=== PATIENT | male | born 1930 | race Caucasian/White ===

== ENCOUNTER 2016-09-01 07:35 | Day surgery (SDC) | payer OTHER ==
[~2016-09-01 07:35] MED LIST: ASPI1TAB69 PO; ATOR20TA15 PO; CYAN1000P SQ; GABA600T PO; ISOS30TA3 PO; KOMB2.5T PO; LISI40TA PO; LORA1TAB12 PO; METO25TA3 PO; PLAV75TA29 PO; VENTAER INH; VITA200012 PO
== END 2016-09-01 08:10 | disposition home or self-care (01) ==
LOC: HRAD 07:35 → HRIP 07:39 → HRAD 08:10
PROVIDERS: ATTEND Internal Medicine
DX: R91.8 Other nonspecific abnormal finding of lung field (principal)

== ENCOUNTER 2016-09-06 09:46 | Day surgery (SDC) | payer OTHER ==
[~2016-09-06] VITALS: Ht 162.6 cm; Wt 54.5 kg
[2016-09-06 10:03] VITALS: BP 173/83; PULSE 87; RESP 18; TEMP 97.4; O2SAT 98
[2016-09-06] MEDS ORDERED: ASPI81CH37 CHEW (10:12)
[2016-09-06] MEDS ORDERED: SODIUM CHLOR 0.9% 1000 ML IV SCH (10:15)
[2016-09-06 10:56] LABS: AUTOMATED NEUTROPHIL # 6.1 TH/MM3 (1.8-7.7); BASOPHIL % 0.6 % (0.0-2.0); EOSINOPHIL # 0.1 TH/MM3 (0-0.4); EOSINOPHIL % 1.7 % (0.0-4.0); HEMATOCRIT 35.2 % (39.0-51.0); HEMO FLAGS DIFF FINAL; LYMPH % 11.1 % (9.0-44.0); LYMPHOCYTE # 0.9 TH/MM3 (1.0-4.8); MEAN CELL VOLUME 78.9 FL (80.0-100.0); MEAN CORPUSCULAR HEMOGLOBIN 25.9 PG (27.0-34.0); MEAN CORPUSCULAR HGB CONC 32.8 % (32.0-36.0); MONO % 7.6 % (0.0-8.0); PLATELET COUNT 234 TH/MM3 (150-450); RED BLOOD COUNT 4.46 MIL/MM3 (4.50-5.90); RED CELL DISTRIBUTION WIDTH 14.2 % (11.6-17.2); WHITE BLOOD COUNT 7.7 TH/MM3 (4.0-11.0)
[2016-09-06 11:01] LABS: APTT (PATIENT) 43.4 SEC (24.3-30.1); PROTHROMBIN TIME - PATIENT 11.3 SEC (9.8-11.6)
[2016-09-06] MEDS ORDERED: LIDOCAINE 1%/EPINEPHrine 1:100,000 SOLN 20 ML VIAL ONE (11:35)
[2016-09-06] MEDS ORDERED: fentaNYL CITRATE 250 MCG/5 ML AMP ONE (11:54)
[2016-09-06] MEDS ORDERED: MIDAZOLAM HCL 2 MG/2 ML VIAL ONE (11:54)
--- NOTE | 2016-09-06 12:18 | PD.RAD ---
Post CT Procedure Prog Note Pre Procedure Diagnosis: (1) Mass of chest wall, left Post Procedure Diagnosis: (1) Mass of chest wall, left Procedure Date: Sep 06, 2016 Supervising Radiologist: Landon Al Anesthesia: Local, Conscious Sedation Plan of Activity Patient to Unit: [facility] Patient Condition: Good Additional Comments: CT guide biopsy of the left chest wall mass completed. Pt tolerated the procedure well. Full dictated report to follow See PACS Report for procedural detail/treatment Landon Al MD Sep 06, 2016 12:18
[2016-09-06 12:30] VITALS: BP 139/59; PULSE 80; RESP 16; TEMP 97.9; O2SAT 98
[2016-09-06 12:45] VITALS: BP 131/68; PULSE 83; RESP 18; O2SAT 97
--- NOTE | 2016-09-06 12:58 | RADRPT ---
EXAM DATE/TIME: 09/06/2016 11:58 [facility] COMPARISON: CT SIMULATION, June 17, 2014, 17:03. INDICATIONS : Left 2nd rib pain. SEDATION TIME: 30 minutes BIOPSY SITE: Left MEDICATION(S): 1.) 1 mg midazolam (Versed) IV 2.) 50 mcg fentanyl (Sublimaze) IV DEVICE(S): 1.) 20 gauge Temno core biopsy needle MEDICAL HISTORY : Diabetes mellitus type 2. Squamous cell carcinoma SURGICAL HISTORY : None. ENCOUNTER: Initial ACUITY: 1 day PAIN SCORE: 0/10 LOCATION: Left A total of two core specimen(s) were obtained and sent to the laboratory for pathologic evaluation. PROCEDURE: 1. CT guided bone deep biopsy. 2. Conscious sedation with continuous EKG and oximetry monitoring. 3. EKG and oximetry remained stable throughout the procedure. Prior to the procedure informed consent was obtained. Any appropriate prior imaging studies were rev iewed. Using automated exposure control and adjustment of the mA and/or kV according to patient size, radiat ion dose was kept as low as reasonably achievable to obtain optimal diagnostic quality images. DICOM format image data is available electronically for review and comparison. The site was prepped in a sterile fashion. Full sterile technique was used, including cap, mask, vivian rile gloves and gown and a large sterile sheet. Hand hygiene and 2% chlorhexidine and/or betadine/al cohol prep was utilized per protocol for cutaneous antisepsis. The skin and subcutaneous tissues wer e infiltrated with local anesthetic solution. With CT guidance the previously identified target was localized. Biopsy was performed using the presc ribed needle as above. Adequate hemostasis was obtained with compression at the puncture site. Follow-up CT scan reveals no hemorrhage. The patient tolerated the procedure well and there were no complications. The patient was returned to the Radiology Outpatient Unit in stable condition. CONCLUSION: Uncomplicated CT guided biopsy. Landon Al MD on September 06, 2016 at 12:57 Board Certified Radiologist. This report was verified electronically.
[2016-09-06 13:15] VITALS: BP 129/65; PULSE 84; RESP 20; O2SAT 97
[2016-09-06 13:45] VITALS: BP_SYST 130; BP_SYST 135; BP_DIAS 68; BP_DIAS 70; PULSE 78; PULSE 81; RESP 18; TEMP 97.9; TEMP 98; O2SAT 94; O2SAT 95
[2016-09-06 14:15] VITALS: BP 142/69; PULSE 83; RESP 18; O2SAT 98
== END 2016-09-06 14:35 | disposition home or self-care (01) ==
LOC: HRAD 09:46 → HRIP 10:02 → HRAD 14:35
PROVIDERS: ATTEND Internal Medicine
DX: C41.3 Malignant neoplasm of ribs, sternum and clavicle (principal); C44.92 Squamous cell carcinoma of skin, unspecified; R07.81 Pleurodynia; E11.9 Type 2 diabetes mellitus without complications; E53.8 Deficiency of other specified B group vitamins; I10 Essential (primary) hypertension; J44.9 Chronic obstructive pulmonary disease, unspecified; D69.6 Thrombocytopenia, unspecified; K21.9 Gastro-esophageal reflux disease without esophagitis; I25.10 Atherosclerotic heart disease of native coronary artery without angina pectoris; M10.9 Gout, unspecified; Z95.1 Presence of aortocoronary bypass graft; Z98.61 Coronary angioplasty status
CPT/HCPCS: 20225; 77012; 85025; 85610; 85730; 88307; 88313; 88341; 88342; 99152; 99153; J2250; J3010; 88305